=== PATIENT | female | born 1950 | race Caucasian/White ===

== ENCOUNTER → 2017-01-14 | Outpatient (CLI) | payer MEDICARE, BC ==
[2015-02-22 11:15] VITALS: BP 128/55
[~2017-01-14] MED LIST: ALBU8.5H3 INH; ESTR42.53 VG; FENO145T PO; GENT5DRO3 EACHEYE; GLIM2TAB2 PO; METF10002 PO; METR70GE2 VG; MIRA25TA PO; MOME13HF IH; MULT-651 PO; OXYC-323 PO; SENN1TAB70 PO
--- NOTE | 2017-01-14 13:00 | RAD ---
Indication pain and swelling. AP and lateral views of the left ankle were obtained. No acute finding is seen. 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 Some mild narrowing of the tibiotalar joint, medially, is additionally seen.
--- NOTE | 2017-01-14 13:07 | RAD ---
Indication foot swelling ankle pain. Heel spur. AP oblique and lateral views of the left foot were obtained. There is suggested bony demineralization. An acute finding is not seen. Some degenerative change at the first metatarsal phalangeal joint is seen. Mild degenerative changes are seen involving the midfoot. A small spur is noted off the calcaneus. IMPRESSION: Suspect bony demineralization. No acute finding seen.
== END | disposition home or self-care (01) ==
LOC: DXRAD 12:26
PROVIDERS: ATTEND Podiatrist Foot & Ankle Surgery
DX: M25.572 Pain in left ankle and joints of left foot (principal); M77.32 Calcaneal spur, left foot; M79.89 Other specified soft tissue disorders
CPT/HCPCS: 73600; 73630

== ENCOUNTER → 2017-03-27 | Outpatient (CLI) | payer MEDICARE, BC ==
[2015-02-22 11:15] VITALS: BP 128/55
[~2017-03-27] MED LIST changes: -ALBU8.5H3 INH; +ALBU8.5H8 INH; -FENO145T PO; +FENO145T32 PO
--- NOTE | 2017-03-27 12:39 | RAD ---
Right wrist, 4 views, 03/27/2017: History: Wrist pain No acute fracture or dislocation is identified. Mild deformity of the distal ulna is compatible with an old healed fracture. There is mild degenerative change at the first CMC joint. IMPRESSION: No acute bony abnormality is detected.
== END | disposition home or self-care (01) ==
LOC: DXRADRC 11:11
PROVIDERS: ATTEND Family Medicine
DX: M25.531 Pain in right wrist (principal)
CPT/HCPCS: 73110

== ENCOUNTER → 2017-04-01 | Outpatient (CLI) | payer MEDICARE, BC ==
[2015-02-22 11:15] VITALS: BP 128/55
--- NOTE | 2017-04-01 09:45 | RAD ---
EXAM: MAMMO GERARDO SCREENING BILATERAL HISTORY: Routine Screening. COMPARISON: Priors including 08/22/2016 and 03/06/2016 Standard mammographic views are obtained of the bilateral breasts. Additionally three-dimensional tomographic images obtained. This study was interpreted with the benefit of Computerized Aided Detection (CAD). FINDINGS: The breast parenchyma shows scattered fibroglandular densities. Breast parenchyma level II. There is no definite new suspicious spiculated mass. Repeat demonstration of multiple calcifications within the left breast but these were also present on prior. IMPRESSION: No definite new suspicious mass. BI-RADS CATEGORY: 2 BENIGN FINDING RECOMMENDED FOLLOW-UP: 12M 12 MONTH FOLLOW-UP PQRS compliance statement: Patient information was entered into a reminder system with a target due date for the next mammogram. Mammography is a sensitive method for finding small breast cancers, but it does not detect them all and is not a substitute for careful clinical examination. A negative mammogram does not negate a clinically suspicious finding and should not result in delay in biopsying a clinically suspicious abnormality. "Our facility is accredited by the [employer] Mammography [employer]."
== END | disposition home or self-care (01) ==
LOC: MAMMO 07:57
PROVIDERS: ATTEND Family Medicine
DX: Z12.31 Encounter for screening mammogram for malignant neoplasm of breast (principal); M25.531 Pain in right wrist
CPT/HCPCS: 77063; G0202; 77067

== ENCOUNTER → 2018-05-10 | Outpatient (CLI) | payer MEDICARE, BC ==
[2015-02-22 11:15] VITALS: BP 128/55
[~2018-05-10] MED LIST changes: -METF10002 PO; +METF10003 PO
--- NOTE | 2018-05-10 14:26 | RAD ---
DATE: 05/10/2018 EXAM: DIGITAL SCREEN BILAT W/CAD HISTORY: Routine screening COMPARISON: 04/01/2017 This study was interpreted with the benefit of Computerized Aided Detection (CAD). The breast parenchyma shows scattered fibroglandular densities. Breast parenchyma level B. FINDINGS: No new or enlarging breast densities are seen. There are stable benign type calcifications, more so on the left. No suspicious microcalcifications have developed. IMPRESSION: Stable mammograms without evidence of malignancy. BI-RADS CATEGORY: 2 BENIGN FINDING(S) RECOMMENDED FOLLOW-UP: 12M 12 MONTH FOLLOW-UP PQRS compliance statement: Patient information was entered into a reminder system with a target due date for the next mammogram. Mammography is a sensitive method for finding small breast cancers, but it does not detect them all and is not a substitute for careful clinical examination. A negative mammogram does not negate a clinically suspicious finding and should not result in delay in biopsying a clinically suspicious abnormality. "Our facility is accredited by the [employer] Mammography [employer]."
== END | disposition home or self-care (01) ==
LOC: MAMMO 13:00
PROVIDERS: ATTEND Family Medicine
DX: Z12.31 Encounter for screening mammogram for malignant neoplasm of breast (principal); E78.5 Hyperlipidemia, unspecified; E78.00 Pure hypercholesterolemia, unspecified; Z90.710 Acquired absence of both cervix and uterus
CPT/HCPCS: 77067

== ENCOUNTER → 2019-07-07 | Outpatient (CLI) | payer MEDICARE, BC ==
[2015-02-22 11:15] VITALS: BP 128/55
[~2019-07-07] MED LIST changes: +ALBU2.5V8 INH; -ALBU8.5H8 INH; -GLIM2TAB2 PO; +GLIM2TAB3 PO; -METF10003 PO; +METF10007 PO; -OXYC-323 PO; +OXYC1TAB15 PO
--- NOTE | 2019-07-07 14:27 | RAD ---
DATE: 07/07/2019. EXAM: DIGITAL SCREEN BILAT W/CAD. HISTORY: Routine mammographic screening. COMPARISON: 05/10/2018. This study was interpreted with the benefit of Computerized Aided Detection (CAD). FINDINGS: Breast Density: SCATTERED The breast parenchyma shows scattered fibroglandular densities. Breast parenchyma level B.. Scattered calcifications are benign. There are no suspicious masses, microcalcifications or architectural distortion. The parenchymal pattern is stable. BI-RADS CATEGORY: 2 BENIGN FINDING(S). RECOMMENDED FOLLOW-UP: 12M 12 MONTH FOLLOW-UP. PQRS compliance statement: Patient information was entered into a reminder system with a target due date 07/07/2020 for the next mammogram. Mammography is a sensitive method for finding small breast cancers, but it does not detect them all and is not a substitute for careful clinical examination. A negative mammogram does not negate a clinically suspicious finding and should not result in delay in biopsying a clinically suspicious abnormality. "Our facility is accredited by the [employer] Mammography [employer]."
== END | disposition home or self-care (01) ==
LOC: MAMMO 08:58
PROVIDERS: ATTEND Family Medicine
DX: Z12.31 Encounter for screening mammogram for malignant neoplasm of breast (principal); N64.89 Other specified disorders of breast
CPT/HCPCS: 77067

== ENCOUNTER → 2020-06-04 | Outpatient (CLI) | payer MEDICARE, BC ==
[2015-02-22 11:15] VITALS: BP 128/55
[~2020-06-04] MED LIST changes: +AMOX1TAB11 PO; +COLE625T12 PO; -GLIM2TAB3 PO; +GLIM2TAB7 PO; +INSU100I32 SQ; +LISI-334 PO; +METH4TAB6 PO; +NITR100C6 PO; +TOLT4CAP PO
--- NOTE | 2020-06-04 14:52 | RAD ---
Chest radiograph 06/04/2020 9:36 AM INDICATION: Shortness of breath, cough COMPARISON: None available TECHNIQUE: Frontal and lateral views of the chest are provided. FINDINGS: The cardiomediastinal silhouette is within normal limits. There are no pleural effusions. There is no pulmonary vascular congestion. There is no pneumothorax. Patchy interstitial airspace disease identified in the left midlung. No significant osseous abnormality is identified. IMPRESSION: Patchy interstitial airspace disease identified in the left midlung possibly within the superior segment left lower lobe suspicious for pulmonary infiltrate in appropriate clinical setting. Short-term follow-up is recommended to ensure resolution. Electronically signed by: Caro Godwin MD (06/04/2020 2:49 PM) [id number]
== END | disposition home or self-care (01) ==
LOC: DXRAD 09:16
PROVIDERS: ATTEND Physician Assistant Medical
DX: J84.9 Interstitial pulmonary disease, unspecified (principal); R05 Cough; R06.02 Shortness of breath; Z87.09 Personal history of other diseases of the respiratory system
CPT/HCPCS: 71046

== ENCOUNTER 2020-06-07 02:04 | Inpatient (IN) | payer MEDICARE, BC ==
[~2020-06-07] VITALS: Ht 170.2 cm; Wt 78.6 kg
[~2020-06-07 02:04] MED LIST changes: -AMOX1TAB11 PO; -COLE625T12 PO; -INSU100I32 SQ; -LISI-334 PO; -METH4TAB6 PO; -NITR100C6 PO; -TOLT4CAP PO
--- NOTE | 2020-06-07 02:22 | PHYS DOC ---
Past History Past Medical History: Asthma, Diabetes, High Cholesterol Additional Past Medical Histor: Incontinence Past Medical History Limited secondary to poor historian Past Surgical History: Cholecystectomy, Hysterectomy, Tonsillectomy Additional Past Surgical Histo: Bladder surgery, Hemorrhoidectomy Past Surgical History Limited secondary to poor historian Smoking: Non-smoker Alcohol Use: None Drug Use: None General Adult EDM: Chief Complaint: WEAKNESS/GENERALIZED HPI: HPI: 69-year-old female presents via EMS with report of generalized weakness after getting up to use the restroom this morning. Patient has been doing a "dry enema "in preparation for a GI procedure this morning. Patient was found to be febrile by EMS with temperature of 101.1 F. Patient reports 1 week history of cough and generalized malaise. Patient had been seen by her PCP and started on empiric antibiotics for possible bronchitis. Patient had undergone chest x-ray here as outpatient that had noted some possible concerns for infiltration. Patient denies known exposure to COVID-19. Denies nausea or vomiting. History of present illness limited secondary to poor historian Review of Systems: Review of Systems: Constitutional: Reports fever, chills, and generalized malaise and weakness Respiratory: Reports cough and shortness of breath Cardiovascular: Denies chest pain or palpitations GI: Denies abdominal pain, nausea, or vomiting; reports diarrhea : Denies dysuria or hematuria Integument: Denies rash or skin lesions Neurologic: Denies headache, focal weakness or sensory changes; reports gene ralized weakness Review of systems limited secondary to patient poor historian Allergies: Allergies: Allergies Coded Allergies Type Severity Reaction Last Updated Verified Hduukug-Hgm-Evo Reductase Inhibitor Allergy Intermediate 02/22/15 Yes ciprofloxacin Allergy Intermediate Nausea and Vomiting 02/21/15 Yes Physical Exam: PE: Constitutional: Well developed, well nourished, no acute distress, non-toxic appearance HENT: Normocephalic, atraumatic Eyes: PERRL, EOMI, conjunctiva normal, no discharge Neck: Normal range of motion, no tenderness, supple, no meningeal signs Lungs & Thorax: No respiratory distress, equal chest rise and fall Abdomen: Soft, no tenderness, no guarding/rebound tenderness/distention Skin: Warm, dry, no erythema, no rash Back: No tenderness, no CVA tenderness Extremities: No tenderness, ROM intact, no edema Neurologic: Alert and oriented X 3, slow to respond with some difficulty remembering names of medications, normal motor function, normal sensory function, no focal deficits noted Psychologic: Affect flat, judgment normal EKG: EKG: @0315 NSR at 99bpm, NO ST elevation, QRS 66ms, QT/QTc 342/444ms Radiology/Procedures: Radiology/Procedures: PROCEDURE: CT HEAD WO CONTRAST INDICATION: Reason: weakness / Spl. Instructions: / History: COMPARISON: None. TECHNIQUE: Axial CT images obtained through the head without intravenous contrast. One or more of the following individualized dose reduction techniques were utilized for this examination: 1. Automated exposure control; 2. Adjustment of the mA and/or kV according to patient size; 3. Use of iterative reconstruction technique. FINDINGS: No intracranial hemorrhage. No midline shift. Basal cisterns patents. Ventricles and sulci are globally prominent. No acute osseous abnormality. Orbits and paranasal sinuses unremarkable. Scattered foci of low attenuation within the white matter. IMPRESSION: 1. No acute intracranial hemorrhage. 2. Scattered regions of low attenuation within the white matter. Non-specific in nature but frequently secondary to chronic small vessel ischemic disease. 3. Prominence of ventricles and sulci which is frequently secondary to age related volume loss. Electronically signed by: Al Lemus MD (06/07/2020 4:03 AM) [id number] PROCEDURE: CT ANGIOGRAPHY CHEST INDICATION: Reason: weakness, SOA Omni 350 100cc / Spl. Instructions: / History: COMPARISON: Chest x-ray from June 04, 2020 TECHNIQUE: Axial CT images obtained through the chest. Intravenous contrast utilized. Angiogram 3D images processed per protocol. One or more of the following individualized dose reduction techniques were utilized for this examination: 1. Automated exposure control; 2. Adjustment of the mA and/or kV according to patient size; 3. Use of iterative reconstruction technique. FINDINGS: Patchy opacities are seen throughout the bilateral lungs including groundglass and nodular component. No evidence of pneumothorax. Partially visualized liver is low density which can be seen with fatty infiltration. The liver and spleen appear enlarged. Prominent lymph nodes in the mediastinum and hilum. For example subcarinal region measuring approximately 12 mm short axis. Calcific atherosclerosis including of the coronary arteries. No evidence of thoracic aortic aneurysm. Degenerative changes of spine. IMPRESSION: No embolus in the main, right main or left main pulmonary artery. There is a large amount of breathing motion which obscures the more peripheral vessels. Multifocal groundglass and nodular opacities throughout the bilateral lungs. This can be seen with bilateral pneumonia which can be from viral etiology, bacterial or atypical organisms. Alternative cause such as pulmonary edema would be considered less likely given the pattern. Prominent lymph nodes in the mediastinum which could be reactive to the pulmonic process but follow-up could be obtained to ensure this appropriately resolves to exclude neoplastic causes. Hepatosplenomegaly with fatty infiltration of the liver. Electronically signed by: Al Lemus MD (06/07/2020 4:41 AM) [id number] Course & Med Decision Making: Course & Med Decision Making Pertinent Labs and Imaging studies reviewed. (See chart for details) Patient presents via EMS with report of generalized weakness upon getting up to use the bathroom this morning. Patient had been undergoing a "dry enema "in preparation for GI procedure today. Patient noted to have some incontinence of stool by nursing staff. No focal deficit appreciated. Patient is a poor historian and had some difficulty in relating information. EMS had noted patient to be febrile. History of patient currently on antibiotic therapy for presumed bronchitis based on recent x-ray. [employer] review notes patient with x-ray findings concerning for possible infiltration. Cannot fully exclude COVID-19. COVID precautions in place. COVID testing pending. EKG stable. Labs obtained and posted to chart. Hypomagnesemia addressed. WBC and lactic acid within normal limits. CPK greater than 1100. UA with proteinuria. Concern for rhabdomyolysis. IV fluid hydration provided. CT head without acute process. CTA chest with concern for atypical pneumonia versus COVID pneumonia. Patient denies hospitalization within last 90 days. Community-acquired pneumonia empiric antibiotics initiated with Rocephin and azithromycin. Patient requiring admission for further evaluation and treatment. Discussed with Dr. Bennett (hospitalist) who is in agreement with admission. Discussed findings and plan with patient, who acknowledges understanding and agreement. COVID-19 CRITERIA: The patient was evaluated during the global COVID-19 pandemic, and that diagnosis was suspected/considered upon their initial presentation. Their evaluation, treatment and testing was consistent with current guidelines for patients who present with complaints or symptoms that may be related to COVID-19. [place] Disclaimer: [place] Disclaimer: This electronic medical record was generated, in whole or in part, using a voice recognition dictation system. Departure Departure: Impression: Primary Impression: Weakness Additional Impressions: Rhabdomyolysis Qualified Codes: M62.82 - Rhabdomyolysis Suspected 2019 novel coronavirus infection Hypomagnesemia Pneumonia Qualified Codes: J18.9 - Pneumonia, unspecified organism Disposition: ADMITTED INPATIENT Admitting Physician: Eliseo Bennett Condition: STABLE Referrals: PEDRO ALMONTE MD (PCP) Justification of Admission: Justification of Admission: Justification of Admission Dx: Yes Comments: weakness, pneumonia, rhabdomyolysis, COVID PUI, hypomagnesemia COVID-19 Assessment COVID-19 Patient Risks: Age 65 or older: Yes Sign of co-morbidity: Yes Exp to person + for COVID: No Exp to PUI: No Travel from affected area: No Lower respiratory symptoms: Yes Fever: Yes PPE Use: Full PPE with N95 mask or PAPR: Yes JANESSA BAILEY DO Jun 07, 2020 02:22
[2020-06-07] MEDS ORDERED: CONTRAST GIVEN. MC PRN (02:45)
[2020-06-07 03:00] LABS: BASO % 0 % (0-3); EOS % 0 % (0-3); HEMATOCRIT 37.9 % (36.0-47.0); HEMOGLOBIN 13.1 g/dL (12.0-15.5); LYMPH # 0.5 x10^3/uL (1.0-4.8); LYMPH % 7 % (24-48); MEAN CORPUSCULAR HEMOGLOBIN 33 pg (25-35); MEAN CORPUSCULAR HGB CONC 35 g/dL (31-37); MEAN CORPUSCULAR VOLUME 95 fL (79-100); MONO % 14 % (0-9); NEUT # 5.6 x10^3uL (1.8-7.7); NEUT % 79 % (31-73); PLATELET COUNT 172 x10^3/uL (140-400); RED CELL DISTRIBUTION WIDTH 13.1 % (11.5-14.5); WHITE BLOOD COUNT 7.1 x10^3/uL (4.0-11.0)
[2020-06-07] MEDS ORDERED: IV NORMAL SALINE 1,000ML 1,000 ML IV ONE (03:00)
[2020-06-07] MEDS ORDERED: IOHEXOL 350 MG/ML 100 ML VIAL. IV ONE (03:00)
[2020-06-07 03:05] LABS: CALCIUM 8.8 mg/dL (8.5-10.1); CREATININE 1.1 mg/dL (0.6-1.0); GFR 49.1; POTASSIUM 4.2 mmol/L (3.5-5.1)
[2020-06-07 03:11] LABS: ALBUMIN 3.3 g/dL (3.4-5.0); ALBUMIN/GLOBULIN RATIO 0.7 (1.0-1.7); TOTAL BILIRUBIN 0.6 mg/dL (0.2-1.0); TOTAL PROTEIN 7.8 g/dL (6.4-8.2)
[2020-06-07 03:15] LABS: BILIRUBIN,URINE NEG (NEG); CLARITY,URINE HAZY; COLOR,URINE YELLOW; GLUCOSE,URINE NEG (NEG); NITRITE,URINE NEG (NEG); UROBILINOGEN,URINE 0.2 mg/dL (0.2 mg/dL)
[2020-06-07 03:18] LABS: MAGNESIUM 1.4 mg/dL (1.8-2.4)
[2020-06-07 03:18] LABS: AMORPHOUS SEDIMENT,UR PRESENT /HPF; BACTERIA,URINE FEW /HPF (0-FEW)
--- NOTE | 2020-06-07 04:05 | RAD ---
INDICATION: Reason: weakness / Spl. Instructions: / History: COMPARISON: None. TECHNIQUE: Axial CT images obtained through the head without intravenous contrast. One or more of the following individualized dose reduction techniques were utilized for this examination: 1. Automated exposure control; 2. Adjustment of the mA and/or kV according to patient size; 3. Use of iterative reconstruction technique. FINDINGS: No intracranial hemorrhage. No midline shift. Basal cisterns patents. Ventricles and sulci are globally prominent. No acute osseous abnormality. Orbits and paranasal sinuses unremarkable. Scattered foci of low attenuation within the white matter. IMPRESSION: 1. No acute intracranial hemorrhage. 2. Scattered regions of low attenuation within the white matter. Non-specific in nature but frequently secondary to chronic small vessel ischemic disease. 3. Prominence of ventricles and sulci which is frequently secondary to age related volume loss. Electronically signed by: Al Lemus MD (06/07/2020 4:03 AM) [id number]
[2020-06-07] MEDS ORDERED: ACETAMINOPHEN 500 MG TABLET PO ONE (04:30)
--- NOTE | 2020-06-07 04:44 | RAD ---
INDICATION: Reason: weakness, SOA Omni 350 100cc / Spl. Instructions: / History: COMPARISON: Chest x-ray from June 04, 2020 TECHNIQUE: Axial CT images obtained through the chest. Intravenous contrast utilized. Angiogram 3D images processed per protocol. One or more of the following individualized dose reduction techniques were utilized for this examination: 1. Automated exposure control; 2. Adjustment of the mA and/or kV according to patient size; 3. Use of iterative reconstruction technique. FINDINGS: Patchy opacities are seen throughout the bilateral lungs including groundglass and nodular component. No evidence of pneumothorax. Partially visualized liver is low density which can be seen with fatty infiltration. The liver and spleen appear enlarged. Prominent lymph nodes in the mediastinum and hilum. For example subcarinal region measuring approximately 12 mm short axis. Calcific atherosclerosis including of the coronary arteries. No evidence of thoracic aortic aneurysm. Degenerative changes of spine. IMPRESSION: No embolus in the main, right main or left main pulmonary artery. There is a large amount of breathing motion which obscures the more peripheral vessels. Multifocal groundglass and nodular opacities throughout the bilateral lungs. This can be seen with bilateral pneumonia which can be from viral etiology, bacterial or atypical organisms. Alternative cause such as pulmonary edema would be considered less likely given the pattern. Prominent lymph nodes in the mediastinum which could be reactive to the pulmonic process but follow-up could be obtained to ensure this appropriately resolves to exclude neoplastic causes. Hepatosplenomegaly with fatty infiltration of the liver. Electronically signed by: Al Lemus MD (06/07/2020 4:41 AM) [id number]
[2020-06-07] MEDS ORDERED: IV NORMAL SALINE 1,000ML 1,000 ML IV SCH (05:37)
[2020-06-07] MEDS ORDERED: cefTRIAXone SODIUM 1 GM VIAL ONE (05:37)
[2020-06-07] MEDS ORDERED: IV NORMAL SALINE 250ML 250 ML ONE (05:37)
[2020-06-07] MEDS ORDERED: AZITHROMYCIN 500 MG VIAL. IV ONE (05:37)
[2020-06-07] MEDS ORDERED: IV NORMAL SALINE 50ML 50 ML ONE (05:37)
[2020-06-07] MEDS ORDERED: ONDANSETRON PF 4 MG/2 ML VIAL. IVP PRN (05:45)
[2020-06-07] MEDS ORDERED: DEXTROSE 50% 25 GM / 50ML DISP.SYRIN. IV PRN (05:45)
[2020-06-07] MEDS ORDERED: MAGNESIUM SULFATE 2GM 50 ML IV ONE (06:00)
[2020-06-07] MEDS ORDERED: AZITHROMYCIN 500 MG in IV NORMAL SALINE 250ML 250 ML IV ONE (06:00)
[2020-06-07 06:09] VITALS: BP 124/62
--- NOTE | 2020-06-07 06:10 | NUR ---
Admission: The patient, SATNAM MOLINA I, 69 y/o, F admitted by BERENICE FLORES MD, was given written information regarding hospital policies, unit procedures and contact persons. Pt arrived to room 125 via gurney, accompanied by [facility] and nursing sup. Pt placed in contact and airborne precautions for COVID PUI. Pt c/o dry cough x1 week and was taking PO ABT for bronchitis. Pt reports she was completing a bowel prep for a barium enema scheduled this morning and slipped in her bathroom while attempting to have a BM. Pt's was unable to lift her from the floor and EMS was called. Pt denies injury or hitting her head. Pt normally ambulates independently, but has been feeling weak since bowel prep. Pt started on IV fluids and IV ABT. Pt a poor historian, reports only PMH as DM, HLD, and asthma. Pt unable to recall home meds. Pt's , Sid, contacted to notify of pt admission. Sid will bring home meds to the hospital for review. Discussed POC with pt and , V/U. Call light in reach. Valuables were checked and logged. Left in room with pt.
--- NOTE | 2020-06-07 07:15 | EKG ---
[address] [address] Test Date: 2020-06-07 Test Time: 03:15:45 Pat Name: SATNAM MOLINA Department: Room: Gender: F [employer]cutter: KUSHAL : 1950 Requested By: JANESSA BAILEY Order Number: [id number] Reading MD: Measurements Intervals [place] Rate: 99 P: 60 [place]: 156 QRS: -28 QRSD: 66 T: 42 QT: 342 QTc: 444 Interpretive Statements SINUS RHYTHM LEFTWARD AXIS NO SPECIFIC ECG ABNORMALITIES RI6.02 No previous ECG available for comparison
[2020-06-07] MEDS ORDERED: INSU100I32 SQ (07:30)
[2020-06-07] MEDS: INSULIN LISPRO 300 UNITS/3 ML VIAL. SQ SCH ×3 (08:18→17:23)
[2020-06-07] MEDS ORDERED: TOLT4CAP PO (08:54)
[2020-06-07] MEDS ORDERED: NITR100C6 PO (08:54)
[2020-06-07] MEDS ORDERED: METH4TAB6 PO (08:54)
[2020-06-07] MEDS ORDERED: LISI-334 PO (08:54)
[2020-06-07] MEDS ORDERED: COLE625T12 PO (08:54)
[2020-06-07] MEDS ORDERED: AMOX1TAB11 PO (08:54)
[2020-06-07 11:14] VITALS: BP 124/59
[2020-06-07] MEDS: ACETAMINOPHEN 325 MG TABLET PO PRN ×2 (14:48→23:03)
[2020-06-07 14:50] VITALS: BP 116/93
[2020-06-07] MEDS: IV NORMAL SALINE 1,000ML 1,000 ML IV SCH (17:45)
[2020-06-07] MEDS ORDERED: ALBUTEROL SULFATE 2.5 MG/3 ML NEBU. INH PRN (17:45)
[2020-06-07] MEDS ORDERED: ALBUTEROL SULFATE 8GM INHALER. INH PRN (18:15)
--- NOTE | 2020-06-07 18:27 | HP ---
ADMIT DATE: 06/07/2020 HISTORY OF PRESENT ILLNESS: The patient is a 69-year-old female patient, who came to the Emergency Room with generalized weakness. She was brought by EMS with reported generalized weakness after getting up to use the restroom this morning. The patient has been doing dry enema in preparation for barium enema. The patient was found to be febrile by EMS with temperature of 101.1. She reports 1-week history of cough and generalized malaise; has been seen by her primary care physician and started empirically on antibiotic for possible bronchitis. She has undergone a chest x-ray as an outpatient and was noted some possible concern for infiltration. The patient denies known exposure to COVID-19. Denied any nausea or vomiting. Apparently, her daughter at the age of 36 because of colon cancer and she was investigated by Dr. Anderson and apparently had had a colonoscopy and also was preparing for barium enema for further evaluation of her colon according to her. PAST MEDICAL HISTORY: Significant for type 2 diabetes and hyperlipidemia. She also has hypertension and overactive bladder. PAST SURGICAL HISTORY: Significant for tonsillectomy, cholecystectomy, total abdominal hysterectomy, hemorrhoidectomy and colonoscopy x 2. ALLERGIES: She is allergic to STATINS, CIPROFLOXACIN and ERYTHROMYCIN. MEDICATIONS: She is currently on amoxicillin/clavulanic acid 875 mg twice a day, nitrofurantoin monohydrate 100 mg twice a day, albuterol sulfate 2 puffs every 6 hours. She is on Welchol 625 mg, she takes 6 tablets p.o. daily; fenofibrate nanocrystallized 145 mg once a day, lisinopril 20 mg once a day, methylprednisolone 4 mg daily, metformin 1000 mg twice a day, Lantus insulin 27 units at bedtime, sulfonylurea glimepiride 4 mg daily and Detrol LA 4 mg capsule once a day. FAMILY HISTORY: She is the only child. She has no brothers and sisters. Her father at age of 74 because of complication of diabetes. Her mother at the age of 82 at the intermediate after she had had a cerebrovascular accident. SOCIAL HISTORY: She is , has 2 daughters who are healthy. One daughter at age of 36 because of colon cancer. She never smoked, does not drink alcohol. 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 REVIEW OF SYSTEMS: The patient denied any blurring of vision. She denied any cataract, glaucoma or macular degeneration. Denied any earache, tinnitus or sensorineural deafness. Denied any nosebleeds, stuffy nose or postnasal drip. Denied any sore throat, sore tongue, toothache, hoarseness of voice or difficulty swallowing. Denied any nausea, vomiting, diarrhea or constipation. Denied any hematemesis, melena or hematochezia. Denied any dysuria or frequency. Denied any chest pain, shortness of breath, orthopnea or paroxysmal nocturnal dyspnea. Denied any cough, phlegm or hemoptysis. Did complain of generalized weakness, low-grade fever. PHYSICAL EXAMINATION: GENERAL: On arrival to the Emergency Room, she looked well and she was clearly tachypneic, tachycardic, febrile with temperature of 101.6. VITAL SIGNS: Her heart rate was 100, respiratory rate 26, blood pressure was 135/64, temperature was 93 and on room air. HEAD, EYES, EARS, NOSE AND THROAT: Showed normocephalic, atraumatic. NECK: Supple. HEART: Showed normal first and second heart sounds. No gallop, rub or murmur. CHEST: Showed central trachea, equal bilateral chest expansion, air entry. I could not really appreciate crepitation or rhonchi. ABDOMEN: Distended, soft, nontender. No guarding or rigidity. No organomegaly. All hernial orifices intact. Bowel sounds normal. NEUROLOGIC: She is awake, alert, responding appropriately. All cranial nerves intact. EXTREMITIES: She moves extremities without difficulty, although apparently has been extremely weak. LABORATORY DATA: Her lab work on arrival showed a white cell count 7100, hemoglobin 13, hematocrit 37, MCV 95, and platelet count of 172,000. Her serum sodium was 130, potassium 4.2, chloride 96, bicarbonate 20, anion gap of 14, BUN 26, creatinine 1.1, estimated GFR was 49 mL per minute. Her glucose was 24, glucose was 215, lactic acid was 1.7, calcium was 8.8, magnesium was 1.4. Total bilirubin, AST, ALT, alkaline phosphatase are normal. Her ammonia was 14 and her CK was 1138. Troponin was 0.026. Her lipase was 150. Her total protein was 7.8, albumin was 3.3. Her prothrombin time was 11.2, INR 1.1, aPTT was 26. Urinalysis showed the urine was yellow, hazy with a pH of 5, specific gravity of 1.025. There was large amount of protein. The urine was negative for glucose, ketones, large amount of blood, negative for nitrite and leukocyte esterase. There were 6-10 rbc's, 5-10 wbc's, and very few bacteria. CT scan of the head showed no intracranial hemorrhage, no midline shift. Basal cisterns are patent. Ventricles and sulci are globally prominent. No acute osseous abnormality. Orbits and paranasal sinuses are unremarkable. Scattered foci of low attenuation within the white matter consistent with chronic small vessel ischemic disease, prominence of ventricles and sulci, which is frequently secondary to age-related volume loss. The patient was basically admitted. The CT angio of the chest showed that the patient has patchy opacities that are seen throughout bilateral lungs including ground glass and nodular component. No evidence of pneumothorax. Partially visualized liver is low density, which can be seen with fatty infiltration and the liver and spleen appears enlarged. She has prominent lymph nodes in the mediastinum and hilum; for example, subcarinal region, measuring approximately 12 mm short axis. Calcific atherosclerosis including the coronary arteries. No evidence of thoracic aortic aneurysm, degenerative changes of spine with the impression is the patient has no emboli in the right main and left main pulmonary artery. There is large amount of breathing motion, which obscures the more peripheral vessels, multifocal ground-glass and nodular opacities throughout bilateral lungs, which can be seen with bilateral pneumonia which can be from viral etiology, bacterial or atypical pneumonia. Alternative causes such as pulmonary edema, which would be considered less likely given the pattern. She has prominent lymph nodes in the mediastinum, which could be reactive to the pulmonic process, but followup could be obtained to ensure that this appropriately resolved to exclude neoplastic causes. She has hepatosplenomegaly with fatty infiltration of the liver. ASSESSMENT AND PLAN: The patient was basically admitted with generalized weakness, mild rhabdomyolysis. She has also suspected 2019 novel coronavirus infection, hypomagnesemia and pneumonia. The patient was started on IV antibiotic in the form of ceftriaxone and Zithromax. We will replenish her magnesium. We will reconcile all her medication and she was swabbed for COVID-19. If her symptoms worsen, we will consider obviously the other options of remdesivir and convalescent plasma. Meanwhile, I will start her on dexamethasone or perhaps continue with her methylprednisolone. BERENICE FLORES MD DR: Bev JOB#: [id number] / [id number]
[2020-06-07 19:54] VITALS: BP 137/51
[2020-06-07] MEDS: ENOXAPARIN ** NOTE DOSE ** SYRINGE SQ SCH (20:57)
[2020-06-07] MEDS: NITROFURANTOIN MONOHYD/M-CRYST 100 MG CAPSULE. PO SCH (20:57)
[2020-06-07] MEDS: OXYBUTYNIN CHLORIDE 5 MG TABLET PO SCH (20:57)
[2020-06-07] MEDS: INSULIN GLARGINE SYRINGE. SQ SCH (20:58)
[2020-06-07] MEDS: methylPREDNISolone SOD SUCC PF 40 MG/ML VIAL. IV SCH (21:01)
--- NOTE | 2020-06-07 23:03 | NUR ---
Pt febrile with temp of 103.1. PRN tylenol given and ice packs placed to bilateral under arms.
[2020-06-07 23:04] VITALS: BP 130/63
[2020-06-08] MEDS: IV NORMAL SALINE 1,000ML 1,000 ML IV SCH ×2 (00:03→08:40)
--- NOTE | 2020-06-08 00:35 | NUR ---
Pt in room, lying in bed at shift change. Pt A/O, calm and cooperative. Pt cooperative and compliant with medications and assessment but remains weak and febrile.
[2020-06-08 05:09] VITALS: BP 109/59
[2020-06-08] MEDS: methylPREDNISolone SOD SUCC PF 40 MG/ML VIAL. IV SCH ×3 (05:49→21:44)
[2020-06-08 06:57] LABS: HEMATOCRIT 34.1 % (36.0-47.0); HEMOGLOBIN 11.4 g/dL (12.0-15.5); RED BLOOD COUNT 3.57 x10^6/uL (3.50-5.40); RED CELL DISTRIBUTION WIDTH 13.1 % (11.5-14.5); WHITE BLOOD COUNT 5.3 x10^3/uL (4.0-11.0)
[2020-06-08 07:14] LABS: ALBUMIN 2.3 g/dL (3.4-5.0); ALBUMIN/GLOBULIN RATIO 0.6 (1.0-1.7); C REACTIVE PROTEIN 55.9 mg/L (0-3.3); CALCIUM 7.9 mg/dL (8.5-10.1); GFR 54.8; POTASSIUM 4.8 mmol/L (3.5-5.1); TOTAL BILIRUBIN 0.3 mg/dL (0.2-1.0); TOTAL PROTEIN 6.4 g/dL (6.4-8.2)
[2020-06-08] MEDS: NITROFURANTOIN MONOHYD/M-CRYST 100 MG CAPSULE. PO SCH ×2 (08:30→21:43)
[2020-06-08] MEDS: OXYBUTYNIN CHLORIDE 5 MG TABLET PO SCH ×3 (08:30→21:44)
[2020-06-08] MEDS: LISINOPRIL 20 MG TABLET PO SCH ×2 (08:30→09:00)
[2020-06-08] MEDS: FENOFIBRATE NANOCRYSTALLIZED 145 MG TABLET PO SCH ×2 (08:30→09:00)
[2020-06-08] MEDS: COLESEVELAM HCL 625 MG PO SCH ×4 (08:30→17:11)
[2020-06-08] MEDS: ENOXAPARIN ** NOTE DOSE ** SYRINGE SQ SCH (08:31)
[2020-06-08] MEDS: INSULIN LISPRO 300 UNITS/3 ML VIAL. SQ SCH ×3 (08:39→18:02)
[2020-06-08] MEDS ORDERED: FLU VACC QS 2020-21(6MOS+)/PF 0.5 ML SYRINGE. VAX IM ONE (09:00)
[2020-06-08] MEDS ORDERED: GLIMEPIRIDE 2 MG TABLET PO SCH (09:00)
--- NOTE | 2020-06-08 11:14 | NUR ---
Patient states home med list was incorrect; medication timing changed to match her home schedule.
[2020-06-08 11:16] VITALS: BP 109/43
[2020-06-08 11:57] VITALS: BP 110/52
--- NOTE | 2020-06-08 14:31 | NUR ---
IP: patient PUI for COIVD-19, requires contact and airborne precautions.
[2020-06-08 15:00] VITALS: BP 107/55
[2020-06-08] MEDS ORDERED: DEXTROSE 50% 25 GM / 50ML DISP.SYRIN. IV PRN (15:15)
[2020-06-08] MEDS ORDERED: ENOXAPARIN 40 MG/0.4 ML SYRINGE. SQ SCH (16:30)
[2020-06-08 20:32] VITALS: BP 123/60
[2020-06-08] MEDS ORDERED: LISINOPRIL 20 MG TABLET PO SCH (21:00)
[2020-06-08] MEDS ORDERED: FENOFIBRATE NANOCRYSTALLIZED 145 MG TABLET PO SCH (21:00)
[2020-06-08] MEDS: INSULIN GLARGINE SYRINGE. SQ SCH (21:00)
--- NOTE | 2020-06-08 21:17 | PN ---
DATE: 06/08/2020 SUBJECTIVE: The patient is resting, in the edge of the bed, in no apparent respiratory distress. She continued to be somewhat weak, although slightly better than yesterday. Denied any chest pain or shortness of breath. Did have cough, which is mostly dry. PHYSICAL EXAMINATION: GENERAL: When I examined her, she looked somewhat pale. No jaundice, cyanosis or thyromegaly. No jugular venous distention. No lower limb edema. VITAL SIGNS: Her heart rate was 79, blood pressure was 110/50, temperature was 97.4, however, did spike yesterday up to 103.1 Fahrenheit, respiratory rate 20, and oxygen saturation was 94% on 1 liter of oxygen. HEAD, EYES, EARS, NOSE AND THROAT: Normocephalic, atraumatic. NECK: Supple. HEART: Showed normal first and second heart sounds. No gallop, rub or murmur. CHEST: Shows central trachea, equal bilateral chest expansion, air entry, vesicular sounds with bilateral basal crepitation, more so on the left than right posteriorly. I could not appreciate any rhonchi. ABDOMEN: Distended, soft, nontender. No guarding or rigidity. No organomegaly. All hernial orifice intact. Bowel sounds normal. NEUROLOGIC: She was awake, alert, responding appropriately. All cranial nerves intact. She moves all extremities without difficulty. Her intake was incompletely recorded, output was 1150. LABORATORY DATA: Her lab work this morning showed a white cell count 5300, hemoglobin 11.4, hematocrit 34, MCV 95 and a platelet count of 160. Her chemistry this morning showed that her serum sodium was 130, potassium 4.2, chloride 96, bicarbonate 20. Her anion gap of 14, BUN of 26, creatinine was 1.1, estimated GFR was 49 mL per minute. Her glucose was 215, lactic acid 1.7, calcium was 8.8. Her magnesium was 1.4. Total bilirubin, AST, ALT, alkaline phosphatase were normal. Ammonia was 14. Total protein was 7.8. Serum albumin was 3.3. Her prothrombin time was 11.2, INR 1.1, aPTT was 26. Her D-dimer was slightly elevated at 0.86. Urinalysis showed the urine was yellow, hazy with a pH of 5, specific gravity of 1.025 with large amount of protein, negative for glucose and ketones, large amount of blood, negative for leukocyte esterase with 6-10 rbc's, 5-10 wbc's, and very few bacteria. Her urine culture showed no growth and her blood cultures are negative after 1 day. ASSESSMENT: 1. In summary, this is a 69-year-old female patient, who was admitted with generalized weakness. 2. Mild rhabdomyolysis. In fact, her CK on admission was 1138 and today was 1191. The patient has also hyponatremia that improved with serum sodium went up to 136 from 130, her BUN has improved from 26 down to 17 and creatinine came down from 1.1 to 1. Her blood sugar continued to be suboptimally controlled. We held her metformin. Her calcium was 7.9. Total bilirubin 0.3 with the slightly elevated AST, ALT, alkaline phosphatase. Her C-reactive protein was high at 55.9. Other medical problems include type 2 diabetes, hyperlipidemia, hypertension and overactive bladder. PLAN: My plan is to adjust her insulin and we will restart her metformin tomorrow. Meanwhile, we will continue with IV normal saline at 100 mL per hour. I will restart also her glimepiride. Continue with glimepiride and adjust her insulin sliding scale to higher level. BERENICE FLORES MD DR: SUSANNAH/luis JOB#: [id number] / [id number]
[2020-06-08 22:23] VITALS: BP 117/44
[2020-06-09] MEDS: IV NORMAL SALINE 1,000ML 1,000 ML IV SCH (04:13)
[2020-06-09 06:33] VITALS: BP 95/65
--- NOTE | 2020-06-09 06:35 | NUR ---
Pt slept soundly most of the night. She denies pain. Pt lung sounds increasingly wet, congested sounding. Fluids paused for evaluation by physician. Pt head of bed raised. Will continue to monitor.
[2020-06-09] MEDS: methylPREDNISolone SOD SUCC PF 40 MG/ML VIAL. IV SCH ×2 (06:45→14:11)
[2020-06-09] MEDS ORDERED: ALBUTEROL SULFATE 8GM INHALER. INH PRN (07:41)
[2020-06-09] MEDS: NITROFURANTOIN MONOHYD/M-CRYST 100 MG CAPSULE. PO SCH (07:50)
[2020-06-09] MEDS: OXYBUTYNIN CHLORIDE 5 MG TABLET PO SCH ×2 (07:51→14:11)
[2020-06-09] MEDS: INSULIN LISPRO 300 UNITS/3 ML VIAL. SQ SCH ×2 (07:55→12:21)
[2020-06-09 08:07] LABS: CALCIUM 8.2 mg/dL (8.5-10.1); GFR 54.8; POTASSIUM 4.7 mmol/L (3.5-5.1)
[2020-06-09] MEDS ORDERED: ENOXAPARIN 40 MG/0.4 ML SYRINGE. SQ SCH (09:00)
[2020-06-09] MEDS ORDERED: GLIMEPIRIDE 2 MG TABLET PO SCH (09:00)
[2020-06-09 09:04] LABS: BGAS PH 7.37 (7.35-7.45)
[2020-06-09 11:00] VITALS: BP 121/92
[2020-06-09] MEDS: COLESEVELAM HCL 625 MG PO SCH ×2 (12:18→16:58)
--- NOTE | 2020-06-09 14:33 | RAD ---
Exam performed: One view chest HISTORY: Shortness of breath DATE OF SERVICE: 06/09/2020. COMPARISON: 06/04/2020. Single AP upright portable view chest findings: Heart size and mediastinal silhouette is within limits of normal. Pulmonary vascular is unremarkable. Diffuse bilateral pulmonary infiltrates are seen. No pleural effusion or pneumothorax identified. IMPRESSION: Diffuse bilateral pulmonary infiltrates. Electronically signed by: Marjan Stover MD (06/09/2020 2:30 PM) [id number]
[2020-06-09 15:00] VITALS: BP 109/59
[2020-06-09] MEDS ORDERED: AZITHROMYCIN 250 MG TABLET. PO ONE (15:00)
--- NOTE | 2020-06-09 15:17 | DS ---
DATE OF DISCHARGE: HOSPITAL COURSE: The patient is a 69-year-old female patient, who was admitted on 06/07/2020 with generalized weakness, fever with temperature of 101.1. She reports 1-week history of cough and generalized malaise, has been seen by primary care physician, started empirically on antibiotic for possible bronchitis. She has undergone a chest x-ray as an outpatient and was noted to have some possible concern for infiltration. The patient denied any known exposure to COVID-19. Denied any nausea or vomiting. Apparently, her daughter at age of 36 because of colon cancer and she was investigated by Dr. Anderson and has had a colonoscopy and she was preparing for barium enema for further evaluation of her colon according to her. In any case, initially she did spike a temperature and she did receive Zithromax and ceftriaxone and steroids; however, initially she was on room air and her oxygen requirement kept steadily worsening and today, she is up to 5 liters to maintain her oxygen around 91%. Her repeat chest x-ray this morning showed the heart size and mediastinal silhouette is within normal limits. Pulmonary vascularity is unremarkable. Diffuse bilateral pulmonary infiltrates are seen, but no pleural effusion or pneumothorax identified. Given that she has worsening lung infiltrate, worsening oxygen requirement and her coronavirus by PCR came back positive, a decision was made to transfer her to [facility] to continue with IV antibiotic, continue with steroids and to consult the flight kitchen manager as well as Infectious Disease as she probably is a candidate for remdesivir as well as convalescent plasma. PHYSICAL EXAMINATION: GENERAL: When I saw her this afternoon, she was resting, slightly propped up, clearly somewhat tachypneic. She was slightly pale, but no jaundice, cyanosis or thyromegaly. No jugular venous distention. No limb edema. VITAL SIGNS: Her heart rate was 92, blood pressure was 121/92, temperature was 98.3, respiratory rate was 24, and oxygen saturation was 96% on 5 liters of oxygen. HEAD, EYES, EARS, NOSE AND THROAT: Showed normocephalic, atraumatic. NECK: Supple. HEART: Showed normal first and second heart sounds. No gallop, rub or murmur. CHEST: Shows central trachea, equal bilateral expansion, air entry, vesicular sounds with bilateral diffuse crackles on both sides. I could not appreciate any rhonchi. ABDOMEN: Distended, soft, nontender. NEUROLOGIC: She is awake, alert, responding appropriately. All cranial nerves intact. She moves extremities without difficulty. Her intake over the last 24 hours was 1780, output was 2850. LABORATORY DATA: Her lab work as of this morning showed a serum sodium 136, potassium 4.7, chloride 106, bicarbonate 19, anion gap of 11, BUN 20, creatinine 1, estimated GFR was 54 mL per minute. Her glucose was 167, calcium was 8.2 and her CK came down from 1138 down to 687. DISCHARGE MEDICATIONS: She will be discharged to continue on her metformin 1000 mg twice a day, Lovenox 40 mg subcutaneously once a day, glimepiride 2 mg daily, albuterol sulfate 1 puff every 6 hours, lisinopril 20 mg once a day, fenofibrate 145 mg at bedtime. She is on insulin sliding scale. She is on Welchol 1875 mg twice a day, methylprednisolone 40 mg IV q. 8 hourly, oxybutynin 5 mg 3 times a day, Lantus insulin 27 units subcutaneously at bedtime. She will also continue on Zithromax 250 mg once a day and Rocephin 1 g IV daily together with all her other medications. I will probably need to adjust her insulin and the Humalog and Lantus insulin higher given that she is on steroids and we will consult the flight kitchen manager and the Infectious Disease specialist. FINAL DISCHARGE DIAGNOSES: 1. COVID-19 associated pneumonia. 2. Acute hypoxic respiratory failure. The patient's oxygen requirement on chest x-ray is worsening. Other medical problems include type 2 diabetes mellitus, hyperlipidemia, hypertension and overactive bladder. BERENICE FLORES MD DR: SUSANNAH/luis JOB#: [id number] / [id number]
[2020-06-09] MEDS ORDERED: FUROSEMIDE 20 MG/2 ML VIAL IVP SCH (16:45)
[2020-06-09] MEDS ORDERED: metFORMIN 500 MG TABLET PO SCH (21:00)
--- NOTE | 2020-06-11 10:52 | NUR ---
IP: notified IP at [facility], [place], of + COVID result. IP was already aware.
== END 2020-06-09 17:46 | disposition short-term general hospital (02) | DRG 177 ==
LOC: ER 02:04 → 1 SOUTH 05:30
PROVIDERS: ADMIT Internal Medicine; ATTEND Internal Medicine
DX: U07.1 COVID-19 (principal); J12.89 Other viral pneumonia; J96.01 Acute respiratory failure with hypoxia; C18.9 Malignant neoplasm of colon, unspecified; E87.1 Hypo-osmolality and hyponatremia; M62.82 Rhabdomyolysis; E11.9 Type 2 diabetes mellitus without complications; E78.00 Pure hypercholesterolemia, unspecified; E78.5 Hyperlipidemia, unspecified; E83.42 Hypomagnesemia; I10 Essential (primary) hypertension; J45.909 Unspecified asthma, uncomplicated; K76.0 Fatty (change of) liver, not elsewhere classified; N32.81 Overactive bladder; Z83.3 Family history of diabetes mellitus; Z90.710 Acquired absence of both cervix and uterus; Z88.8 Allergy status to other drugs, medicaments and biological substances; Z90.49 Acquired absence of other specified parts of digestive tract
CPT/HCPCS: 36415; 36600; 51702; 70450; 71045; 71275; 80048; 80053; 81001; 82140; 82550; 82553; 82803; 82947; 83605; 83690; 83735; 84484; 85025; 85027; 85379; 85610; 85730; 86140; 87040; 87086; 90471; 93005; 96360; J0456; J0696; J1650; J1815; J2920; J3475; J7050; J7613; Q9967; 90686; 99285-25; J7030; U0003-CS

== ENCOUNTER → 2021-04-15 | Outpatient (CLI) | payer MEDICARE, BC ==
[~2021-04-15] MED LIST changes: +AMOX1TAB11 PO; +COLE625T12 PO; +INSU100I32 SQ; +LISI20TA18 PO; +METH4TAB6 PO; +NITR100C6 PO; +TOLT4CAP PO
--- NOTE | 2021-04-15 17:50 | RAD ---
XR CHEST 2V History: Reason: SOB; CHEST PAIN / Spl. Instructions: / History: Comparison: June 09, 2020 Findings: No consolidation or pleural effusion. Normal heart size. No pneumothorax. Impression: 1. No acute cardiopulmonary process. Electronically signed by: Cecil Nathan DO (04/15/2021 5:47 PM) [facility]
== END ==
LOC: RAD 17:19
PROVIDERS: ATTEND Nurse Practitioner Family
DX: J98.8 Other specified respiratory disorders (principal)
CPT/HCPCS: 71046